=== PATIENT | male | born 1995 | race Caucasian/White ===

== ENCOUNTER 2017-12-03 11:47 | Emergency (ER) | payer OTHER ==
[2017-12-03] MEDS: NAPROXEN 250 MG TAB PO (12:32)
[2017-12-03] MEDS: METHOCARBAMOL 750 MG TAB PO (13:36)
== END 2017-12-03 13:58 | disposition home or self-care (01) ==
LOC: M ED 11:47
DX: S20.211A Contusion of right front wall of thorax, initial encounter (principal); V49.49XA Driver injured in collision with other motor vehicles in traffic accident, initial encounter; Y92.410 Unspecified street and highway as the place of occurrence of the external cause; G80.9 Cerebral palsy, unspecified; Z79.899 Other long term (current) drug therapy
CPT/HCPCS: 71101

== ENCOUNTER 2018-07-23 13:14 | Emergency (ER) | payer OTHER ==
[2018-07-23] MEDS ORDERED: MORPHINE 4 MG/ML 1ML VIAL/SYRINGE (J2270) IM (15:00)
[2018-07-23] MEDS: KETOROLAC 60 MG/2 ML VIAL (J1885) IM (15:04)
== END 2018-07-23 15:26 | disposition home or self-care (01) ==
LOC: M ED 13:14
DX: S09.90XA Unspecified injury of head, initial encounter (principal); V40.5XXA Car driver injured in collision with pedestrian or animal in traffic accident, initial encounter; Y92.410 Unspecified street and highway as the place of occurrence of the external cause; F33.9 Major depressive disorder, recurrent, unspecified; Z79.899 Other long term (current) drug therapy
CPT/HCPCS: J1885